=== PATIENT | male | born 1980 | race Caucasian/White ===

== ENCOUNTER 2020-02-21 00:54 | Emergency (ER) | payer SELFPAY ==
[~2020-02-21] VITALS: Ht 182.9 cm; Wt 113.6 kg
[~2020-02-21 00:54] MED LIST: CEFDINIR300 MG PO; PHENERGAN 25 TA25 MG PO; TUMS REGULAR S500 MG PO
[2020-02-21 01:42] LABS: EOS # 0.1 (0.04-0.40); EOS % 1.3 % (0.0-4.0); HEMATOCRIT 41.1 % (42.0-52.0); HEMOGLOBIN 14.2 g/dL (13.5-18.0); LYMPH# 2.2 (1.50-4.00); MEAN CELL VOLUME 91 fl (78-100); MEAN CORPUSCULAR HEMOGLOBIN 31 pg (27-31); MEAN CORPUSCULAR HGB CONC 35 g/dL (33-37); MONO # 0.6 (0.20-0.80); NEU # 5.4 (1.40-6.50); PLATELET COUNT 199 K/mm3 (130-400); RED BLOOD COUNT 4.53 M/mm3 (4.20-5.60); WHITE BLOOD COUNT 8.4 K/mm3 (4.8-10.8)
[2020-02-21 01:53] LABS: POTASSIUM 3.1 mmol/L (3.5-5.1)
[2020-02-21 01:54] LABS: CALCIUM 9.1 mg/dL (8.3-10.5)
[2020-02-21 02:15] VITALS: BP 132/76
== END 2020-02-21 02:15 | disposition home or self-care (01) ==
LOC: ED 00:54
PROVIDERS: Family Medicine
DX: N20.0 Calculus of kidney (principal); E87.6 Hypokalemia; F17.210 Nicotine dependence, cigarettes, uncomplicated; Z90.89 Acquired absence of other organs
CPT/HCPCS: J1885